=== PATIENT | female | born 1950 | race Two or more races ===

== ENCOUNTER 2022-01-05 16:29 | Emergency (ER) | payer OTHER ==
[~2022-01-05] VITALS: Ht 170.2 cm; Wt 91.0 kg
[2022-01-05] MEDS ORDERED: ONDANSETRON HCL 4MG/2ML INJ IV STA (16:48)
[2022-01-05] MEDS ORDERED: SODIUM CHLORIDE 0.9% 1,000 ML IV ONE (17:00)
[2022-01-05 18:00] LABS: BASOPHILS % 0.3 % (0.0-2.0); EOSINOPHILS % 0.6 % (0.0-5.0); HEMATOCRIT. 30.5 % (36.0-48.0); LYMPHOCYTES % 23.1 % (20.0-50.0); MEAN CORPUSCULAR HEMOGLOBIN 29.9 pg (28.0-32.0); MEAN CORPUSCULAR VOLUME 91.2 fL (81.0-99.0); MEAN PLATELET VOLUME 8.1 fl (7.4-10.4); PLATELET 176 x1000/uL (130-400); RED BLOOD CELL COUNT 3.34 mill/uL (4.2-5.4); RED CELL DISTRIBUTION WIDTH 14.3 % (11.6-14.6)
[2022-01-05 18:08] LABS: CHLORIDE 107 mEq/L (98-107)
[2022-01-05] MEDS ORDERED: POTASSIUM CHLORIDE 20MEQ TABLET SR PO ONE (18:45)
[2022-01-05] MEDS ORDERED: KCL 10MEQ/50ML PREMIX 50 ML IV ONE (18:45)
[2022-01-05 22:28] VITALS: BP 110/65
== END 2022-01-05 22:40 | disposition home or self-care (01) ==
LOC: ER 16:29
DX: F12.90 Cannabis use, unspecified, uncomplicated (principal); E87.6 Hypokalemia
CPT/HCPCS: 36415; 80053; 85025; 96361; 96365; 96375; 99285; J2405; J3480; J7030